=== PATIENT | female | born 1965 | race Caucasian/White ===

== ENCOUNTER → 2017-09-23 | Outpatient (REF) | payer OTHER | LOC: M LAB REF 17:40 | DX: N39.0 Urinary tract infection, site not specified (principal) | CPT/HCPCS: 87186 ==

== ENCOUNTER 2018-10-31 13:53 | Inpatient (IN) | payer BC, OTHER ==
[~2018-10-31] VITALS: Ht 154.9 cm; Wt 100.0 kg
[2018-10-31] MEDS ORDERED: ACET-683 PO (14:06)
[2018-10-31] MEDS ORDERED: HYDROMORPHONE HCL 0.5 MG/ 0.5 ML SYRINGE (J1170 PER 1) As Ordered ONE (15:10)
[2018-10-31] MEDS ORDERED: HYDROmorphone HCL 1 MG/ML SYRINGE (J1170) IV PRN (15:15)
--- NOTE | 2018-10-31 15:31 | REP ---
LEFT ANKLE SERIES: Four views of the left ankle performed. There are comminuted fractures of the distal fibula and tibia with posterolateral displacement and lateral angulation of the talus with respect to the distal end of the tibia. Electronically Signed by Larry Christian MD 11/03/2018 11:55 A
[2018-10-31 15:49] LABS: HEMATOCRIT 40.7 % (36.0-47.0); HEMOGLOBIN 12.8 g/dl (12.0-15.5); MEAN CORPUSCULAR HEMOGLOBIN 27.4 pg (27.0-33.0); MEAN CORPUSCULAR HGB CONC 31.4 g/dl (32.0-36.5); MEAN CORPUSCULAR VOLUME 87.2 fl (80.0-96.0); PLATELET COUNT, AUTOMATED 314 10^3/uL (150-450); RED BLOOD COUNT 4.67 10^6/uL (4.00-5.40); WHITE BLOOD COUNT 11.4 10^3/uL (4.0-10.0)
[2018-10-31 15:56] LABS: INR 0.96; PROTHROMBIN TIME 12.9 SECONDS (12.1-14.4)
[2018-10-31 15:57] LABS: PARTIAL THROMBOPLASTIN TIME 32.5 SECONDS (25.4-37.6)
[2018-10-31] MEDS: HYDROMORPHONE HCL 0.5 MG/ 0.5 ML SYRINGE (J1170 PER 1) IV PRN ×2 (15:59→18:32)
[2018-10-31 16:16] LABS: BLOOD UREA NITROGEN 14 MG/DL (7-18); CALCIUM LEVEL 8.8 MG/DL (8.5-10.1); CARBON DIOXIDE LEVEL 28 MEQ/L (21-32); CHLORIDE LEVEL 106 MEQ/L (98-107); CREATININE FOR GFR 0.84 MG/DL (0.55-1.30); GLOMERULAR FILTRATION RATE > 60.0 (>51); GLUCOSE, FASTING 95 MG/DL (70-100); POTASSIUM SERUM 4.4 MEQ/L (3.5-5.1); SODIUM LEVEL 140 MEQ/L (136-145)
[2018-10-31] MEDS ORDERED: LIDOCAINE 1% MDV 20ML VIAL As Ordered ONE (16:25)
[2018-10-31] MEDS ORDERED: HYDROMORPHONE HCL 0.5 MG/ 0.5 ML SYRINGE (J1170 PER 1) IV ONE (16:30)
[2018-10-31] MEDS ORDERED: HYDROmorphone HCL 1 MG/ML SYRINGE (J1170) IV ONE (16:30)
--- NOTE | 2018-10-31 16:41 | REP ---
CHEST, PORTABLE: CHEST: There is no evidence of acute infiltrate. No pleural effusion is seen. The heart is normal in size. The mediastinal silhouette is unremarkable. The visualized osseous structures are intact. IMPRESSION: No acute pulmonary disease. Electronically Signed by Larry Christian MD 11/03/2018 12:06 P
--- NOTE | 2018-10-31 18:12 | REP ---
CT of the ankle without IV contrast: There is plaster casting material. There is a trimalleolar fracture with medial and anterior displacement of the distal tibia. The medial malleolar fracture fragment is angulated laterally. There is diastases of the posterior malleolar fracture. The lateral fractures in the distal shaft of the fibula and the distal fracture fragment is angulated posteriorly. Impression: Trimalleolar fracture dislocation as described. Electronically Signed by Larry Baker MD 10/31/2018 06:04 P
--- NOTE | 2018-10-31 18:25 | REP ---
Left ankle: Three views. Portably obtained. History: Post reduction. Findings: A trimalleolar fracture dislocation persists with posterior dislocation and lateral subluxation seen on these views obtained in cast material. Alignment is somewhat improved but incomplete reduction. Electronically Signed by Peter Contreras MD 10/31/2018 07:08 P
--- NOTE | 2018-10-31 18:55 | ECGEPIP ---
Stationary ECG Study [facility] - ED Test Date: 2018-10-31 Pat Name: RAMU ALVAREZ Department: Room: - Gender: F [employer]: ALVAREZ : 1965 Requested By: EVIE Xie Order Number: [id number] Reading MD: Marc Nicole Measurements Intervals [place] Rate: 58 P: 39 ME: 222 QRS: -8 QRSD: 97 T: 40 QT: 388 QTc: 383 Interpretive Statements SINUS BRADYCARDIA WITH SINUS ARRHYTHMIA WITH FIRST DEGREE AV BLOCK NO PRIORS FOR COMPARISON Electronically Signed On 10-31-2018 18:55:33 EST by Marc Nicole
[2018-10-31] MEDS ORDERED: ceFAZolin 2 GM/D5W 50 ML IV BAG (J0690 PER 500MG) As Ordered ONE (19:02)
[2018-10-31] MEDS ORDERED: ePHEDrine SULFATE 25 MG/5 ML(5MG/ML) SYRINGE As Ordered ONE (19:40)
[2018-10-31] MEDS ORDERED: PROPOFOL 200 MG/20 ML VIAL As Ordered ONE (19:40)
[2018-10-31] MEDS ORDERED: ONDANSETRON 4MG/2ML VIAL (J2405) As Ordered ONE (19:40)
[2018-10-31] MEDS ORDERED: dexameTHASONE 4 MG/ML 1ML VIAL (J1100) As Ordered ONE (19:40)
[2018-10-31] MEDS ORDERED: LIDOCAINE 2% INJ 100 MG/5 ML SDV (FOR ANES.) As Ordered ONE (19:40)
[2018-10-31] MEDS ORDERED: ROCURONIUM BROMIDE 50 MG/5 ML VIAL As Ordered ONE ×2 (19:40→20:48)
[2018-10-31] MEDS ORDERED: fentaNYL 250 MCG/5 ML INJECTION (J3010) As Ordered ONE (19:40)
[2018-10-31] MEDS ORDERED: SUCCINYLCHOLINE 100 MG/5 ML SYRINGE (J0330) As Ordered ONE (19:40)
[2018-10-31] MEDS ORDERED: MIDAZOLAM INJ 2 MG/2 ML VIAL (J2250) As Ordered ONE (19:40)
--- NOTE | 2018-10-31 19:40 | CR ---
DATE OF ER CONSULTATION: 10/31/2018 CHIEF COMPLAINT: Left ankle pain. HISTORY OF PRESENT ILLNESS: Sussy Garrido is a 53-year-old female who was leaving lunch at a restaurant this afternoon when she had a fall onto the ice. She had immediate pain to her ankle and was unable to ambulate afterwards. Patient was transported to [facility] where she was found to have a trimalleolar fracture dislocation of her left ankle. PAST MEDICAL HISTORY: Hypercholesterolemia. ALLERGIES: No known drug allergies. HOME MEDICATIONS: None. SOCIAL HISTORY: Patient lives alone. 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 She smokes E-cigarettes. She is here with her son. PHYSICAL EXAMINATION: GENERAL: Well-appearing, alert and oriented. No acute distress. PULMONARY: Lungs clear to auscultation bilaterally. CARDIOVASCULAR: Regular rate and rhythm. ABDOMEN: Soft, nontender. EXTREMITIES: In the left ankle, there is obvious deformity. There is skin tenting medially. Patient is having difficulty moving her toes. There is some tingling throughout the foot, but sensation is intact to light touch in the superficial peroneal, deep peroneal and tibial distribution. There is a palpable dorsalis pedis (DP) pulse. Toes are warm and well-perfused. IMAGING: Left ankle x-rays are reviewed. There is a trimalleolar fracture dislocation. The medial malleolus is prominent against the skin medially. CT scan: CT reveals a trimalleolar fracture dislocation with a posterior malleolus piece that is comminuted and does not appear to involve a large portion of the articular surface. There is some comminution to the fibula as well. IMPRESSION: Left trimalleolar fracture dislocation. PLAN: Long discussion was held with the patient. Given her ankle had been already dislocated for 3 or 4 hours, an attempt to further close reduction in the emergency room was planned. Patient was hopeful that we could get her ankle reduced so that she could have an elective surgery sometime next week. After verbal consent was obtained, patient underwent an ankle block with 10 mL of 1% lidocaine injected just medial to the tibialis anterior tendon. She tolerated this well. I was able to get the ankle reduced, however, it was grossly unstable. A splint was applied, but we were ultimately unable to hold the reduction with the splint given its unstable nature. As such, plans were made to go to the operating room this evening instead of waiting until next week. Risks and benefits of the surgery were discussed with the patient in detail. These include but are not limited to infection, damage to nerves and blood vessels, continued pain and stiffness, need for additional procedures, malunion and nonunion, and a blood clot. Patient understands these risks and informed consent was obtained. We will proceed to the operating room as soon as possible. All her questions were answered and patient was in agreement with this plan. She understands she will be nonweightbearing for somewhere between 6 to 12 weeks depending on whether I need to put in syndesmotic screw or not. We will admit her to the hospital for one night given the late nature of the case.
[2018-10-31] MEDS ORDERED: KETOROLAC 60 MG/2 ML VIAL (J1885) As Ordered ONE (21:36)
[2018-10-31] MEDS ORDERED: NORCO, ANEXSIA 5/325MG TABLET (HYDROcodone/ACETAMINOPHEN) PO PRN (22:30)
[2018-10-31] MEDS ORDERED: LR 1,000 ML IV SCH (22:30)
[2018-10-31] MEDS ORDERED: ONDANSETRON 4MG/2ML VIAL (J2405) IV PRN (22:30)
[2018-10-31] MEDS: fentaNYL 100 MCG/2 ML INJECTION (J3010) IV PRN ×4 (22:40→23:16)
[2018-10-31] MEDS: LR 1,000 ML IV SCH (23:15)
[2018-10-31] MEDS ORDERED: oxyCODONE 5MG TAB PO PRN (23:30)
[2018-10-31] MEDS ORDERED: FLEET ENEMA PR PRN (23:30)
[2018-10-31] MEDS ORDERED: MORPHINE 4 MG/ML 1ML VIAL/SYRINGE (J2270) IV PRN (23:30)
[2018-10-31 23:52] VITALS: BP 144/73
[2018-11-01] VITALS (9 sets, daily range): BP systolic 112–149; BP diastolic 57–89
[2018-11-01] MEDS: ACETAMINOPHEN 500 MG TAB PO SCH ×4 (01:13→21:19)
[2018-11-01] MEDS: oxyCODONE 5MG TAB PO PRN ×2 (05:24→19:05)
[2018-11-01 06:48] LABS: MEAN CORPUSCULAR HEMOGLOBIN 27.7 pg (27.0-33.0); MEAN CORPUSCULAR HGB CONC 31.8 g/dl (32.0-36.5); MEAN CORPUSCULAR VOLUME 87.2 fl (80.0-96.0); PLATELET COUNT, AUTOMATED 266 10^3/uL (150-450); WHITE BLOOD COUNT 10.2 10^3/uL (4.0-10.0)
[2018-11-01] MEDS ORDERED: ACET-683 PO (06:53)
[2018-11-01] MEDS ORDERED: ASPI325T PO (06:53)
[2018-11-01] MEDS ORDERED: OXYC-517 PO (06:53)
[2018-11-01 07:01] LABS: INR 1.11; PROTHROMBIN TIME 14.4 SECONDS (12.1-14.4)
[2018-11-01 07:02] LABS: HEMOGLOBIN 10.8 g/dl (12.0-15.5)
[2018-11-01] MEDS: LR 1,000 ML IV SCH ×2 (07:24→19:05)
--- NOTE | 2018-11-01 08:46 | REP ---
The size right portable left ankle three views: There is internal fixation with a compression plate fixation of the distal fibula and to cannulated screws fixation of the medial malleolus. The fractures of the fibula and medial malleolus are maintained in satisfactory positions alignment. The mortise is symmetric. On the lateral view the posterior malleolus is obscured by the fibular compression plate. Electronically Signed by Larry Baker MD 11/01/2018 08:36 A
--- NOTE | 2018-11-01 09:09 | REP ---
Left ankle intraoperative fluoroscopic views: A series of 10 intraoperative fluoroscopic views are performed during internal fixation of a trimalleolar fracture. The final view demonstrates the trimalleolar fracture and hardware to be in satisfactory positions alignment. Fluoroscopic exposure time is 2 minutes and 46 seconds. Fluoroscopic views are performed with last image hold technology, requiring no additional radiation. Electronically Signed by Larry Bakre MD 11/01/2018 09:01 A
[2018-11-01] MEDS: ASPIRIN 325 MG TAB PO SCH ×2 (10:27→21:18)
--- NOTE | 2018-11-01 15:12 | RO ---
DATE OF PROCEDURE: 10/31/2018 PREPROCEDURE DIAGNOSIS: Left trimalleolar ankle fracture. POSTPROCEDURE DIAGNOSIS: Left trimalleolar ankle fracture. PROCEDURE: Open reduction internal fixation left lateral malleolus and medial malleolus. SURGEON: Patito Johnston MD DOCUMENT IMAGING SPECIALIST: None. ANESTHESIA: General endotracheal. ESTIMATED BLOOD LOSS: 75 mL. COMPLICATIONS: None. CONDITION: Stable to recovery. IMPLANTS: Eight-hole one-third tubular plate with associated screws and 4.0 cannulated screws times two. INDICATIONS: Sussy Garrido is a 53-year-old female who sustained a fall on the ice this afternoon, sustaining a trimalleolar fracture dislocation. A closed reduction was attempted in the emergency room, and it was unsuccessful. The patient was brought to the operating room on a semi-urgent basis given the ankle dislocation. Risks and benefits of surgery were discussed with the patient in detail and included but were not limited to infection, damage to nerves and blood vessels, need for additional procedures, malunion and nonunion, blood clot, continued pain and stiffness. Informed consent was obtained. DESCRIPTION OF PROCEDURE: The patient was in the holding area where her left lower extremity was marked as the correct operative site. She was taken to the operating room and placed in the supine position on the operating room table. Her bony prominences were well padded. She underwent general endotracheal anesthesia without much difficulty. A well-padded tourniquet was placed on the left upper thigh. A chlorhexidine scrub was performed to the left lower extremity. Left lower extremity was prepped and draped in the normal sterile fashion. A preoperative time-out was held where the correct patient, operative site, and operative procedure were verified. At this point, an incision was made over the posterolateral aspect of the fibula. Dissection down to the fracture was performed. There was significant soft tissue and periosteal stripping at the fracture site. The fracture was cleaned of debris and copious irrigation was performed. It was reduced using a pointed reduction clamp and a lobster claw. It was further held in place with a 0.062 wire. A 3.5 mm lag screw was placed across the fracture site. Reduction of the fracture was confirmed on AP, lateral, and mortise views. Following this, an eight-hole Synthes plate was selected. This was placed on the posterolateral aspect of the fibula in an antiglide-like manner. This was secured in place with 3.5 mm cortical screws and 4.0 mm cancellous screws. Reduction and hardware placement were confirmed on AP, lateral, and mortise views. When I was satisfied, attention was then turned to the medial aspect of the ankle. An incision was made directly medially over the medial malleolus. Dissection was performed to the medial malleolar fracture. There was found to be a large flap of periosteum that was interposed in the fracture site. This was removed. The fracture was reduced using the pointed reduction clamp. It was secured in place using two 4.0 mm cannulated screws. Reduction was confirmed on AP, lateral and mortise views. At this point, an external rotation stress test was performed under live fluoroscopy, and the ankle was found to be stable. It was not necessary to place a syndesmotic screw. Tourniquet was let down and hemostasis was maintained. Copious irrigation to both wounds was performed. Subcutaneous tissues were closed using #3-0 Vicryl and skin was closed using #4-0 nylon. A sterile dressing was applied, and the patient was placed in a well-padded splint. She was extubated and transferred to the recovery room in stable condition. PLAN: The patient will be admitted to the hospital overnight. She will be non-weightbearing for 6 weeks. She will be on aspirin for deep vein thrombosis (DVT) prophylaxis, and she will receive 24 hours of IV perioperative antibiotics.
[2018-11-02] MEDS: ACETAMINOPHEN 500 MG TAB PO SCH ×2 (05:03→13:26)
[2018-11-02 06:00] VITALS: BP 123/61
[2018-11-02] MEDS: CYCLOBENZAPRINE 10 MG TAB PO SCH ×2 (08:18→16:27)
[2018-11-02] MEDS: ASPIRIN 325 MG TAB PO SCH (08:18)
[2018-11-02 14:00] VITALS: BP 147/73
[2018-11-02] MEDS: oxyCODONE 5MG TAB PO PRN (17:06)
--- NOTE | 2018-11-04 16:52 | DSES ---
DATE OF ADMISSION: 11/02/2018 DATE OF DISCHARGE: 11/02/2018 ADMISSION DIAGNOSIS: Left ankle trimalleolar fracture/dislocation. OTHER DIAGNOSIS: Hypercholesterolemia. DISCHARGE DIAGNOSIS: Left ankle trimalleolar fracture/dislocation. HISTORY: The patient is a 53-year-old female that slipped on ice and fell. She was brought to the emergency room where they attempted a closed reduction of her fracture dislocation which was unsuccessful. She consented for an elective open reduction internal fixation of this fracture dislocation with Dr. Patito Johnston. OPERATION PERFORMED: Open reduction internal fixation of a medial and lateral malleolus fracture/dislocation. HOSPITAL COURSE: The patient underwent an open reduction internal fixation (ORIF) for medial and lateral malleoli fractures. Surgery was uneventful and her hospital course was without complication. The patient was discharged on oral pain medications and will resume her preoperative medications and diet. She will take aspirin daily to prevent deep venous thrombosis. She will be nonweightbearing on her left lower extremity for the next six weeks. She will followup in our office in two weeks for a wound check and suture removal. The patient is encouraged to contact our office sooner if there is any increase in pain, drainage, numbness or tingling in the extremity, calf pain, fever greater than 101 degrees or any other concerns. Please see the medical record for additional details.
== END 2018-11-02 17:15 | disposition home health service (06) | DRG 313 ==
LOC: EDBD 13:53 → M ED 13:53 → M SDC 17:11 → M MS5PR 23:50 → M SDC 11-02 06:51 → M MS5PR 11-02 06:52
PROVIDERS: ADMIT Orthopaedic Surgery; ATTEND Orthopaedic Surgery
PROC: 0QSK04Z Reposition Left Fibula with Internal Fixation Device, Open Approach (ICD-10-PCS; principal; 2018-10-31 17:00)
DX: S82.852A Displaced trimalleolar fracture of left lower leg, initial encounter for closed fracture (principal); E78.00 Pure hypercholesterolemia, unspecified; W00.0XXA Fall on same level due to ice and snow, initial encounter; Y92.511 Restaurant or cafe as the place of occurrence of the external cause; F17.210 Nicotine dependence, cigarettes, uncomplicated

== ENCOUNTER → 2019-08-22 | Outpatient (REF) | payer BC, OTHER ==
[~2019-08-22] MED LIST: ACET-683 PO; ASPI-1 PO; OXYC-517 PO
== END ==
LOC: M LAB REF 17:24
PROVIDERS: ATTEND Physician Assistant
DX: N39.0 Urinary tract infection, site not specified (principal)

== ENCOUNTER → 2023-01-14 | Outpatient (CLI) | payer OTHER ==
[2023-01-14 11:45] LABS: HEMATOCRIT 42.9 % (36.0-47.0); HEMOGLOBIN 13.3 g/dl (12.0-15.5); MEAN CORPUSCULAR VOLUME 87.2 fl (80.0-96.0); PLATELET COUNT, AUTOMATED 317 10^3/uL (150-450); RED BLOOD COUNT 4.92 10^6/uL (4.00-5.40); WHITE BLOOD COUNT 9.3 10^3/uL (4.0-10.0)
[2023-01-14 12:13] LABS: ALBUMIN 3.6 G/DL (3.2-5.2); ALKALINE PHOSPHATASE 95 U/L (46-116); ALT/SGPT 27 U/L (7.0-40); AST/SGOT 17 U/L (<34); BILIRUBIN,TOTAL 0.3 MG/DL (0.3-1.2); BLOOD UREA NITROGEN 15 MG/DL (9-23); CALCIUM LEVEL 9.2 MG/DL (8.5-10.1); CARBON DIOXIDE LEVEL 29 MMOL/L (20-31); CHLORIDE LEVEL 104 MMOL/L (98-107); CHOLESTEROL LEVEL 242 MG/DL (<200); CHOLESTEROL RISK RATIO 5.57 (<5); CREATININE FOR GFR 0.69 MG/DL (0.55-1.30); GLOMERULAR FILTRATION RATE > 60.0 (>51); GLUCOSE, FASTING 98 MG/DL (60-100); HDL CHOLESTEROL 43.4 MG/DL (>40); LDL CHOLESTEROL 154.4 MG/DL (<100); NON-HDL-C 198.6 MG/DL; POTASSIUM SERUM 3.9 MMOL/L (3.5-5.1); SODIUM LEVEL 138 MMOL/L (136-145); TOTAL PROTEIN 7.1 G/DL (5.7-8.2); TRIGLYCERIDES LEVEL 221 MG/DL (<150)
[2023-01-14 12:15] LABS: THYROID STIMULATING HORMONE 1.623 uIU/ML (0.55-4.78); TOTAL 25(OH) VITAMIN D 15.2 NG/ML (20.0-100.0)
[2023-01-14 12:29] LABS: HEMOGLOBIN A1c 5.6 % (4.0-6.0)
== END ==
LOC: M WUC 09:51
PROVIDERS: ATTEND Family Medicine
DX: I10 Essential (primary) hypertension (principal); R53.83 Other fatigue; E03.9 Hypothyroidism, unspecified

== ENCOUNTER → 2023-01-15 | Outpatient (CLI) | payer OTHER | LOC: M RAD 10:22 | PROVIDERS: ATTEND Family Medicine | DX: I10 Essential (primary) hypertension (principal); R53.83 Other fatigue; E03.9 Hypothyroidism, unspecified; M16.0 Bilateral primary osteoarthritis of hip; M17.0 Bilateral primary osteoarthritis of knee ==

== ENCOUNTER 2023-09-06 09:30 | Emergency (ER) | payer OTHER ==
[~2023-09-06] VITALS: Ht 154.9 cm; Wt 113.6 kg
[2023-09-06] MEDS ORDERED: LISI40TA4 PO (09:43)
[2023-09-06] MEDS ORDERED: LISI30TA4 PO (09:43)
[2023-09-06] MEDS ORDERED: ACET325C5 PO (11:57)
[2023-09-06] MEDS ORDERED: PSEU30TA88 PO (11:57)
[2023-09-06] MEDS ORDERED: MUCI1TAB16 PO (11:57)
[2023-09-06] MEDS ORDERED: IBUP80TA PO (11:57)
[2023-09-06] MEDS ORDERED: PROA1AER2 INH (11:57)
[2023-09-06 12:08] VITALS: BP 123/79; TEMP 99.3; O2SAT 95
== END 2023-09-06 12:17 | disposition home or self-care (01) ==
LOC: M ED 09:30
DX: U07.1 COVID-19 (principal); I10 Essential (primary) hypertension; I25.2 Old myocardial infarction; Z85.828 Personal history of other malignant neoplasm of skin; Z79.82 Long term (current) use of aspirin; Z79.899 Other long term (current) drug therapy

== ENCOUNTER → 2024-06-01 | Outpatient (REF) | payer OTHER ==
[~2024-06-01] MED LIST changes: +ACET325C5 PO; +IBUP80TA PO; +LISI30TA4 PO; +LISI40TA4 PO; +MUCI1TAB16 PO; +PROA1AER2 INH; +PSEU30TA88 PO
== END ==
LOC: M LAB REF 16:14
PROVIDERS: ATTEND Student in an Organized Health Care Education/Training Program
DX: M54.50 Low back pain, unspecified (principal)

== ENCOUNTER 2024-12-05 15:04 | Day surgery (SDC) | payer OTHER ==
[~2024-12-05] VITALS: Ht 154.9 cm; Wt 118.2 kg
[~2024-12-05 15:04] MED LIST changes: +LISI40TA10 PO; -LISI40TA4 PO
[2024-12-05] MEDS: ACETAMINOPHEN *IV* 1,000 MG in IV 1 EA IV ONE (16:30)
[2024-12-05 16:40] LABS: BASO % 0.1 % (0.0-1.0); EOS % 0.1 % (0.0-3.0); HEMATOCRIT 38.6 % (36.0-47.0); HEMOGLOBIN 12.6 g/dl (12.0-15.5); LYMPH # 0.4 10^3/uL (1.5-5.0); LYMPH % 2.9 % (24.0-44.0); MEAN CORPUSCULAR HGB CONC 32.6 g/dl (32.0-36.5); MEAN CORPUSCULAR VOLUME 82.7 fl (80.0-96.0); MONO # 0.2 10^3/uL (0.0-0.8); MONO % 1.6 % (2.0-8.0); NEUTROPHILS # 14.2 10^3/uL (1.5-8.5); NEUTROPHILS % 94.6 % (36.0-66.0); PLATELET COUNT, AUTOMATED 237 10^3/uL (150-450); RED BLOOD COUNT 4.67 10^6/uL (4.00-5.40)
[2024-12-05 16:55] LABS: LIPASE 34 U/L (12-53)
[2024-12-05] MEDS: ONDANSETRON 4MG 2ML VIAL IV ONE (16:56)
[2024-12-05] MEDS: NS (Normal Saline) 0.9% 1,000 ML IV ONE (16:56)
[2024-12-05 16:57] LABS: ALBUMIN 3.2 G/DL (3.2-5.2); ALKALINE PHOSPHATASE 89 U/L (35-104); ALT/SGPT 16 U/L (7.0-40); AST/SGOT 12 U/L (<34); BILIRUBIN,DIRECT 0.2 MG/DL (<0.4); BILIRUBIN,TOTAL 0.6 MG/DL (0.3-1.2); BLOOD UREA NITROGEN 12 MG/DL (9-23); CALCIUM LEVEL 8.6 MG/DL (8.3-10.6); CARBON DIOXIDE LEVEL 26 MMOL/L (20-31); CHLORIDE LEVEL 101 MMOL/L (98-107); GLOMERULAR FILTRATION RATE > 90.0 (>45); GLUCOSE, FASTING 132 MG/DL (74-106); POTASSIUM SERUM 3.7 MMOL/L (3.5-5.1); SODIUM LEVEL 136 MMOL/L (136-145); TOTAL PROTEIN 6.6 G/DL (5.7-8.2)
[2024-12-05 17:08] LABS: KETONE, URINE AUTO RFX NEGATIVE (NEGATIVE); LEUKOCYTE ESTERASE UR AUTO RFX NEGATIVE (NEGATIVE); MUCUS, URINE RFX SMALL (NEGATIVE); NITRITE, URINE AUTO RFX NEGATIVE (NEGATIVE); RBC, URINE AUTO RFX 0 /HPF (0-3); SQUAM EPITHELIAL CELL UR AURFX 3 /HPF (0-6); WBC, URINE AUTO RFX 7 /HPF (0-3)
[2024-12-05] MEDS ORDERED: ISOVUE-370 76% 100 ML VIAL As Ordered ONE (17:45)
[2024-12-05] MEDS: PIPERACILLIN/TAZOBACTAM SOD 3.375 GM in DEXTROSE 5% (D5W) ADV/MINI-BAG 50 ML IV ONE (17:55)
[2024-12-05] MEDS ORDERED: ONDANSETRON 4MG 2ML VIAL IV PRN ×2 (18:05→20:50)
[2024-12-05] MEDS: LR 1,000 ML IV SCH ×2 (18:30→20:50)
[2024-12-05] MEDS: BUPIVACAINE HCL 0.25% As Ordered ONE (18:35)
[2024-12-05] MEDS: LIDOCAINE 1% MDV 20 ML VIAL As Ordered ONE (18:35)
[2024-12-05] MEDS: SCOPOLAMINE 1MG TRANSDERMAL PATCH As Ordered ONE (18:59)
[2024-12-05] MEDS ORDERED: SUGAMMADEX SODIUM 500 MG/5 ML VIAL As Ordered ONE (19:30)
[2024-12-05] MEDS ORDERED: ONDANSETRON 4MG 2ML VIAL As Ordered ONE (19:30)
[2024-12-05] MEDS ORDERED: KETOROLAC 30 MG/ML 1 ML VIAL As Ordered ONE (19:30)
[2024-12-05] MEDS ORDERED: LIDOCAINE 2% 100 MG/5 ML SDV (FOR ANES.) As Ordered ONE (19:30)
[2024-12-05] MEDS ORDERED: SEVOFLURANE INHAL SOLN 250 ML BTL As Ordered ONE (19:30)
[2024-12-05] MEDS ORDERED: dexAMETHasone 4 MG/ML 1 ML VIAL As Ordered ONE (19:30)
[2024-12-05] MEDS ORDERED: dexmedeTOMIDine (4 MCG/ML) 200 MCG/50 ML BTL As Ordered ONE (19:30)
[2024-12-05] MEDS ORDERED: MIDAZOLAM INJ 2 MG/2 ML VIAL As Ordered ONE (19:30)
[2024-12-05] MEDS ORDERED: ROCURONIUM BROMIDE 50MG/5ML VIAL As Ordered ONE (19:30)
[2024-12-05] MEDS ORDERED: propofoL 200 MG/20 ML VIAL As Ordered ONE (19:30)
[2024-12-05] MEDS ORDERED: METOCLOPRAMIDE INJ 10 MG/2 ML VIAL As Ordered ONE (19:30)
[2024-12-05] MEDS ORDERED: fentaNYL 100 MCG/2 ML INJECTION As Ordered ONE (19:30)
[2024-12-05] MEDS ORDERED: PHENYLephrine 500MCG 5ML (100MCG/ML) SYRINGE As Ordered ONE (19:34)
[2024-12-05] MEDS ORDERED: ALBUTEROL 6.7 GM INHALER **FOR ANES. CART/OMNICELL ONLY As Ordered ONE (20:39)
[2024-12-05] MEDS ORDERED: oxyCODONE 5MG TAB PO PRN ×2 (20:50)
[2024-12-05] MEDS ORDERED: PROMETHAZINE 25MG/ML 1ML VIAL IV PRN (20:50)
[2024-12-05] MEDS ORDERED: HYDROMORPHONE HCL 0.5 MG/0.5 ML SYRINGE IV PRN ×2 (20:50)
[2024-12-05] MEDS ORDERED: PERCOCET 5MG/325MG TAB PO PRN (20:50)
[2024-12-05] MEDS: fentaNYL 100 MCG/2 ML INJECTION IV PRN (20:54)
[2024-12-05 21:45] VITALS: BP 104/64; TEMP 98.1; O2SAT 90
[2024-12-05] MEDS: PERCOCET 5MG/325MG TAB PO PRN (22:13)
[2024-12-05 22:18] VITALS: BP 144/71; TEMP 98.2; O2SAT 94
[2024-12-05 23:18] VITALS: BP 142/72; TEMP 98.2; O2SAT 95
[2024-12-05] MEDS: PIPERACILLIN/TAZOBACTAM SOD 3.375 GM in DEXTROSE 5% (D5W) ADV/MINI-BAG 50 ML IV SCH (23:56)
[2024-12-06 00:15] VITALS: BP 107/60; TEMP 97.7; O2SAT 93
[2024-12-06 01:15] VITALS: BP 110/60; TEMP 98.7; O2SAT 92
[2024-12-06 02:15] VITALS: BP 116/64; TEMP 97.6; O2SAT 94
[2024-12-06] MEDS: KETOROLAC 30 MG/ML 1 ML VIAL IV SCH (03:53)
[2024-12-06 04:49] VITALS: BP 110/61; TEMP 97.9; O2SAT 91
[2024-12-06 07:19] LABS: BASO % 0.1 % (0.0-1.0); HEMATOCRIT 33.9 % (36.0-47.0); HEMOGLOBIN 10.8 g/dl (12.0-15.5); LYMPH # 0.4 10^3/uL (1.5-5.0); LYMPH % 4.3 % (24.0-44.0); MEAN CORPUSCULAR HEMOGLOBIN 26.8 pg (27.0-33.0); MEAN CORPUSCULAR HGB CONC 31.9 g/dl (32.0-36.5); MEAN CORPUSCULAR VOLUME 84.1 fl (80.0-96.0); MONO # 0.5 10^3/uL (0.0-0.8); MONO % 4.7 % (2.0-8.0); NEUTROPHILS # 8.8 10^3/uL (1.5-8.5); NEUTROPHILS % 90.3 % (36.0-66.0); PLATELET COUNT, AUTOMATED 181 10^3/uL (150-450); RED BLOOD COUNT 4.03 10^6/uL (4.00-5.40); WHITE BLOOD COUNT 9.8 10^3/uL (4.0-10.0)
[2024-12-06 07:51] LABS: CREATININE FOR GFR 0.77 MG/DL (0.55-1.30); GLOMERULAR FILTRATION RATE 88.3 (>45); POTASSIUM SERUM 3.9 MMOL/L (3.5-5.1)
[2024-12-06 08:00] VITALS: BP 117/59; TEMP 97.7; O2SAT 94
[2024-12-06 08:09] LABS: C REACTIVE PROTEIN QUANTITATIV 20.65 MG/DL (<1.0)
[2024-12-06] MEDS ORDERED: METR-265 PO (11:23)
[2024-12-06] MEDS ORDERED: AUGM500T34 PO (11:23)
[2024-12-06] MEDS ORDERED: PERCOCET PO (11:23)
[2024-12-06 12:00] VITALS: BP 124/61; TEMP 98.1; O2SAT 92
[2024-12-07] MEDS ORDERED: BUPR150T12 PO (02:23)
[2024-12-07] MEDS ORDERED: AMOX500T2 PO (02:23)
[2024-12-07] MEDS ORDERED: PROA1AER2 INH (02:23)
[2024-12-07] MEDS ORDERED: OXYC1TAB23 PO (02:23)
[2024-12-07] MEDS ORDERED: ASPI325T49 PO (02:23)
[2024-12-07] MEDS ORDERED: METR-265 PO (02:24)
== END 2024-12-06 14:15 | disposition home or self-care (01) ==
LOC: M ED 15:04 → M SDC 18:05 → M MS5PR 21:36 → M SDC 12-06 14:15
PROVIDERS: ATTEND Surgery
DX: K35.32 Acute appendicitis with perforation, localized peritonitis, and gangrene, without abscess (principal)
CPT/HCPCS: 36415; 44970; 80048; 80076; 81001; 83605; 83690; 85025; 86140; 87040; 87077; 87154; 87186; 88304; 93005; 96365; 96366; 96375; 96376; 99285; J0131; J0665; J1100; J1885; J2250; J2371; J2405; J2543; J2765; J3010; Q9967

== ENCOUNTER 2024-12-06 20:44 | Inpatient (IN) | payer OTHER, SELFPAY ==
[~2024-12-06] VITALS: Ht 154.9 cm; Wt 118.2 kg
[~2024-12-06 20:44] MED LIST changes: +AUGM500T34 PO; -LISI40TA10 PO; +LISI40TA4 PO; +METR-265 PO; +PERCOCET PO
[2024-12-06 21:53] LABS: VENOUS BASE EXCESS 0.7 (-2.0-2.0); VENOUS HCO3 27.1 MMOL/L (23.0-27.0); VENOUS O2 SATURATION 64.2 % (60.0-80.0); VENOUS PARTIAL PRESSURE CO2 51.1 mmHg (38.0-50.0); VENOUS PH 7.342 UNITS (7.330-7.430); VENOUS STANDARD HCO3 24.4 MMOL/L; VENOUS TOTAL CO2 28.6 MMOL/L (24.0-28.0)
[2024-12-06] MEDS: ACETAMINOPHEN 500 MG TAB PO ONE (22:02)
[2024-12-06 22:03] LABS: HEMATOCRIT 32.8 % (36.0-47.0); HEMOGLOBIN 10.4 g/dl (12.0-15.5); MEAN CORPUSCULAR HEMOGLOBIN 27.1 pg (27.0-33.0); MEAN CORPUSCULAR HGB CONC 31.7 g/dl (32.0-36.5); MEAN CORPUSCULAR VOLUME 85.4 fl (80.0-96.0); PLATELET COUNT, AUTOMATED 152 10^3/uL (150-450); RED BLOOD COUNT 3.84 10^6/uL (4.00-5.40); WHITE BLOOD COUNT 6.8 10^3/uL (4.0-10.0)
[2024-12-06 22:22] LABS: BASOPHILS 1 % (0-1); EOSINOPHILS 2 % (0-3); HYPOCHROMASIA 1+; LYMPHOCYTES 8 % (16-44); MONOCYTES 5 % (0-5); NEUTROPHILS 84 % (28-66)
[2024-12-06 22:23] LABS: PLATELET ESTIMATE NORMAL (NORMAL)
[2024-12-06 22:38] LABS: PROCALCITONIN 28.93 ng/ml
[2024-12-06 22:42] LABS: ALBUMIN 2.6 G/DL (3.2-5.2); ALKALINE PHOSPHATASE 77 U/L (35-104); ALT/SGPT 18 U/L (7.0-40); AST/SGOT 18 U/L (<34); BILIRUBIN,DIRECT 0.2 MG/DL (<0.4); BILIRUBIN,TOTAL 0.4 MG/DL (0.3-1.2); BLOOD UREA NITROGEN 14 MG/DL (9-23); CARBON DIOXIDE LEVEL 27 MMOL/L (20-31); CHLORIDE LEVEL 103 MMOL/L (98-107); CREATININE FOR GFR 0.72 MG/DL (0.55-1.30); GLOMERULAR FILTRATION RATE > 90.0 (>45); GLUCOSE, FASTING 97 MG/DL (74-106); POTASSIUM SERUM 3.7 MMOL/L (3.5-5.1); SODIUM LEVEL 137 MMOL/L (136-145); THYROID STIMULATING HORMONE 1.146 uIU/ML (0.55-4.78); THYROXINE (T4) 6.8 UG/DL (4.5-10.9); TOTAL PROTEIN 5.8 G/DL (5.7-8.2)
[2024-12-06] MEDS: PIPERACILLIN/TAZOBACTAM SOD 4.5 GM in DEXTROSE 5% (D5W) ADV/MINI-BAG 50 ML IV ONE (23:00)
[2024-12-06] MEDS ORDERED: ISOVUE-370 76% 100ML VIAL As Ordered ONE (23:07)
[2024-12-06] MEDS: ONDANSETRON 4MG 2ML VIAL IV ONE (23:32)
[2024-12-07] MEDS ORDERED: MOM 30ML SUSPENSION UDC PO PRN (01:20)
[2024-12-07] MEDS ORDERED: LEVALBUTEROL 1.25 MG 0.5ML CONCENTRATE NEB INH PRN (01:30)
[2024-12-07 02:18] VITALS: BP 176/85; TEMP 97.9; O2SAT 95
[2024-12-07] MEDS ORDERED: OXYC1TAB23 PO (02:23)
[2024-12-07] MEDS ORDERED: PROA1AER2 INH (02:23)
[2024-12-07] MEDS ORDERED: ASPI325T49 PO (02:23)
[2024-12-07] MEDS ORDERED: BUPR150T12 PO (02:23)
[2024-12-07] MEDS ORDERED: AMOX500T2 PO (02:23)
[2024-12-07] MEDS ORDERED: METR-265 PO (02:24)
[2024-12-07] MEDS ORDERED: HOME MED LIST COMPLETE! XX SCH (02:30)
[2024-12-07 02:46] VITALS: BP 131/78; TEMP 97.3
[2024-12-07 03:20] VITALS: O2SAT 95
[2024-12-07 03:27] VITALS: O2SAT 93; O2SAT 94
[2024-12-07] MEDS: PIPERACILLIN/TAZOBACTAM SOD 4.5 GM in DEXTROSE 5% (D5W) ADV/MINI-BAG 50 ML IV SCH (05:44)
[2024-12-07] MEDS: ACETAMINOPHEN 325 MG TAB PO PRN (05:46)
[2024-12-07 07:36] LABS: HEMATOCRIT 33.4 % (36.0-47.0); HEMOGLOBIN 10.6 g/dl (12.0-15.5); MEAN CORPUSCULAR HEMOGLOBIN 26.8 pg (27.0-33.0); MEAN CORPUSCULAR HGB CONC 31.7 g/dl (32.0-36.5); MEAN CORPUSCULAR VOLUME 84.6 fl (80.0-96.0); PLATELET COUNT, AUTOMATED 163 10^3/uL (150-450); RED BLOOD COUNT 3.95 10^6/uL (4.00-5.40); WHITE BLOOD COUNT 8.2 10^3/uL (4.0-10.0)
[2024-12-07 08:04] LABS: ALBUMIN 2.6 G/DL (3.2-5.2); ALKALINE PHOSPHATASE 84 U/L (35-104); ALT/SGPT 21 U/L (7.0-40); AST/SGOT 21 U/L (<34); BILIRUBIN,TOTAL 0.4 MG/DL (0.3-1.2); BLOOD UREA NITROGEN 10 MG/DL (9-23); CALCIUM LEVEL 8.3 MG/DL (8.3-10.6); CARBON DIOXIDE LEVEL 26 MMOL/L (20-31); CHLORIDE LEVEL 104 MMOL/L (98-107); CREATININE FOR GFR 0.64 MG/DL (0.55-1.30); GLOMERULAR FILTRATION RATE > 90.0 (>45); GLUCOSE, FASTING 126 MG/DL (74-106); MAGNESIUM LEVEL 2.2 MG/DL (1.8-2.4); POTASSIUM SERUM 3.5 MMOL/L (3.5-5.1); SODIUM LEVEL 137 MMOL/L (136-145); TOTAL PROTEIN 5.9 G/DL (5.7-8.2)
[2024-12-07] MEDS: ASPIRIN ENTERIC 325MG TAB PO SCH (09:34)
[2024-12-07] MEDS: lisinopriL 40MG TAB PO SCH (09:35)
[2024-12-07] MEDS: ENOXAPARIN 40MG/0.4ML SYRINGE (J1650 PER 10MG) SC SCH (09:35)
[2024-12-07] MEDS: buPROPion **XL** TABLET 150MG (WELLBUTRIN XL) PO SCH (09:35)
[2024-12-07 12:00] VITALS: BP 137/76; TEMP 96.9; O2SAT 95
[2024-12-07 21:04] VITALS: BP 137/72; TEMP 97.9; O2SAT 95
[2024-12-08 05:25] VITALS: BP 137/70; TEMP 97.5; O2SAT 95
[2024-12-08 05:51] LABS: BASO % 0.5 % (0.0-1.0); EOS # 0.5 10^3/uL (0.0-0.5); EOS % 6.2 % (0.0-3.0); HEMATOCRIT 31.8 % (36.0-47.0); LYMPH # 1.6 10^3/uL (1.5-5.0); LYMPH % 21.6 % (24.0-44.0); MEAN CORPUSCULAR HEMOGLOBIN 27.2 pg (27.0-33.0); MEAN CORPUSCULAR HGB CONC 31.4 g/dl (32.0-36.5); MEAN CORPUSCULAR VOLUME 86.4 fl (80.0-96.0); MONO # 0.7 10^3/uL (0.0-0.8); MONO % 8.8 % (2.0-8.0); NEUTROPHILS # 4.6 10^3/uL (1.5-8.5); NEUTROPHILS % 62.2 % (36.0-66.0); PLATELET COUNT, AUTOMATED 167 10^3/uL (150-450); RED BLOOD COUNT 3.68 10^6/uL (4.00-5.40); WHITE BLOOD COUNT 7.4 10^3/uL (4.0-10.0)
[2024-12-08 06:14] LABS: BLOOD UREA NITROGEN 9 MG/DL (9-23); CARBON DIOXIDE LEVEL 27 MMOL/L (20-31); CHLORIDE LEVEL 107 MMOL/L (98-107); CREATININE FOR GFR 0.59 MG/DL (0.55-1.30); GLOMERULAR FILTRATION RATE > 90.0 (>45); GLUCOSE, FASTING 83 MG/DL (74-106); MAGNESIUM LEVEL 2.2 MG/DL (1.8-2.4); POTASSIUM SERUM 3.8 MMOL/L (3.5-5.1); SODIUM LEVEL 142 MMOL/L (136-145)
[2024-12-08 06:20] LABS: PROCALCITONIN 13.32 ng/ml
[2024-12-08 06:28] LABS: C REACTIVE PROTEIN QUANTITATIV 17.15 MG/DL (<1.0)
[2024-12-08 07:35] VITALS: O2SAT 93
[2024-12-08 09:37] VITALS: BP 135/70
[2024-12-08 09:50] LABS: C REACTIVE PROTEIN QUANTITATIV 24.77 MG/DL (<1.0)
[2024-12-08 10:30] VITALS: O2SAT 94
== END 2024-12-08 13:05 | disposition home or self-care (01) | DRG 720 ==
LOC: M ED 20:44 → M ED INP 12-07 01:20 → M MSPAV 12-07 02:15
PROVIDERS: ADMIT Family Medicine; ATTEND Internal Medicine
DX: A41.9 Sepsis, unspecified organism (principal); J69.0 Pneumonitis due to inhalation of food and vomit; I10 Essential (primary) hypertension; E78.5 Hyperlipidemia, unspecified; F41.9 Anxiety disorder, unspecified; E66.813 Obesity, class 3; F32.A Depression, unspecified; Z90.49 Acquired absence of other specified parts of digestive tract; Z90.79 Acquired absence of other genital organ(s); Z87.891 Personal history of nicotine dependence; Z79.2 Long term (current) use of antibiotics; Z79.82 Long term (current) use of aspirin; Z79.899 Other long term (current) drug therapy

== ENCOUNTER 2025-07-15 21:01 | Emergency (ER) | payer OTHER ==
[~2025-07-15] VITALS: Ht 154.9 cm; Wt 117.1 kg
[~2025-07-15 21:01] MED LIST changes: +AMOX500T2 PO; +ASPI325T49 PO; +BUPR150T12 PO; +LISI40TA10 PO; -LISI40TA4 PO; +OXYC1TAB23 PO
[2025-07-15] MEDS: diphenhydrAMINE 50 MG/ML VIAL IV STA (21:12)
[2025-07-15] MEDS ORDERED: ONDANSETRON 4MG/2ML VIAL As Ordered ONE (21:12)
[2025-07-15] MEDS: ONDANSETRON 4MG/2ML VIAL IV ONE (21:14)
[2025-07-15] MEDS: FAMOTIDINE 20 MG/2 ML VIAL IVP ONE (21:15)
[2025-07-15] MEDS: NS (Normal Saline) 0.9% 1,000 ML IV ONE ×2 (21:15→22:36)
[2025-07-15] MEDS: ALBUTEROL SULFATE 2.5 MG/0.5 ML INH CONCENTRATE NEB SOLN NEB ONE (22:10)
[2025-07-15] MEDS: CETIRIZINE 10 MG TAB PO ONE (23:29)
[2025-07-16] VITALS: BP 151/65
[2025-07-16] MEDS ORDERED: PEPC1TAB5 PO (00:03)
[2025-07-16] MEDS ORDERED: EPIP0.3I2 IM (00:03)
[2025-07-16] MEDS ORDERED: PRED20TA PO (00:03)
[2025-07-16] MEDS ORDERED: CETI10CH PO (00:03)
[2025-07-16 00:17] VITALS: TEMP 97.3; O2SAT 96
== END 2025-07-16 00:36 | disposition home or self-care (01) ==
LOC: M ED 21:01
DX: T88.6XXA Anaphylactic reaction due to adverse effect of correct drug or medicament properly administered, initial encounter (principal); I10 Essential (primary) hypertension; J45.909 Unspecified asthma, uncomplicated; F32.A Depression, unspecified; E78.5 Hyperlipidemia, unspecified; Z79.82 Long term (current) use of aspirin; Z79.899 Other long term (current) drug therapy; Z88.8 Allergy status to other drugs, medicaments and biological substances
CPT/HCPCS: 71045; 93041; 94640; 94760; 96361; 96374; 96375; 99285; J1200; J1308; J2405; J2919

== ENCOUNTER → 2025-07-26 | Outpatient (REF) | payer OTHER ==
[~2025-07-26] MED LIST changes: +CETI10CH PO; +EPIP0.3I2 IM; +PEPC1TAB5 PO; +PRED20TA PO
[2025-07-26 17:41] LABS: APPEARANCE, URINE CLEAR (CLEAR); BACTERIA, URINE AUTO 1+ (NEGATIVE); BILIRUBIN, URINE AUTO NEGATIVE (NEGATIVE); BLOOD, URINE BLOOD NEGATIVE (NEGATIVE); GLUCOSE, URINE (UA) AUTO NEGATIVE (NEGATIVE); KETONE, URINE AUTO NEGATIVE (NEGATIVE); LEUKOCYTE ESTERASE, URINE AUTO 1+ (NEGATIVE); MUCUS, URINE SMALL (NEGATIVE); NITRITE, URINE AUTO NEGATIVE (NEGATIVE); PROTEIN, URINE AUTO NEGATIVE (NEGATIVE); RBC, URINE AUTO 1 /HPF (0-3); SPECIFIC GRAVITY URINE AUTO 1.009 (1.002-1.035); SQUAMOUS EPITHELIAL CELL UR AU 0 /HPF (0-6); TRANSITIONAL EPITHELIAL AUTO <1 /HPF; UROBILINOGEN, URINE AUTO 0.2 mg/dL (0.0-2.0); WBC, URINE AUTO 21 /HPF (0-3)
[2025-07-26 18:01] LABS: ALT/SGPT 18 U/L (7.0-40); AST/SGOT 17 U/L (<34); CALCIUM LEVEL 9.7 MG/DL (8.3-10.6); CARBON DIOXIDE LEVEL 23 MMOL/L (20-31); CHLORIDE LEVEL 105 MMOL/L (98-107); CHOLESTEROL LEVEL 248 MG/DL (<200); CHOLESTEROL RISK RATIO 6.73 (<5); CREATININE FOR GFR 0.63 MG/DL (0.55-1.30); GLOMERULAR FILTRATION RATE > 90.0 (>45); LDL CHOLESTEROL 173.4 MG/DL (<100); NON-HDL-C 211.2 MG/DL; POTASSIUM SERUM 4.1 MMOL/L (3.5-5.1); SODIUM LEVEL 139 MMOL/L (136-145); TRIGLYCERIDES LEVEL 189 MG/DL (<150)
[2025-07-26 18:04] LABS: BASO # 0.1 10^3/uL (0.0-0.2); BASO % 0.5 % (0.0-1.0); EOS # 0.4 10^3/uL (0.0-0.5); EOS % 3.1 % (0.0-3.0); LYMPH # 2.7 10^3/uL (1.5-5.0); LYMPH % 22.6 % (24.0-44.0); MONO # 0.7 10^3/uL (0.0-0.8); MONO % 5.5 % (2.0-8.0); NEUTROPHILS # 8.2 10^3/uL (1.5-8.5); NEUTROPHILS % 67.6 % (36.0-66.0); PLATELET COUNT, AUTOMATED 288 10^3/uL (150-450)
[2025-07-26 18:17] LABS: ESTIMATED AVERAGE GLUCOSE 117.0 MG/DL (60-110)
== END ==
LOC: M SFHCLERA 12:01
PROVIDERS: ATTEND Internal Medicine
DX: E66.01 Morbid (severe) obesity due to excess calories (principal)